=== PATIENT | male | born 1940 | race Caucasian/White ===

== ENCOUNTER → 2016-12-19 | Outpatient (CLI) | payer MEDICARE, OTHER | LOC: ECHO 12:58 | DX: Z01.810 Encounter for preprocedural cardiovascular examination (principal); I47.2 Ventricular tachycardia; R06.02 Shortness of breath; I34.8 Other nonrheumatic mitral valve disorders; Z95.0 Presence of cardiac pacemaker; I51.9 Heart disease, unspecified | CPT/HCPCS: ECHO; 93306 ==